=== PATIENT | female | born 1930 | race Hispanic/Latino ===

== ENCOUNTER 2019-04-21 08:48 | Emergency (ER) | payer MEDICARE ==
[2019-04-21] MEDS ORDERED: SUCCINYLCHOLINE CHLORIDE 200 MG/10 ML INJ MDV IV ONE (08:52)
[2019-04-21] MEDS ORDERED: ETOMIDATE 20 MG/10 ML INJ IV ONE ×2 (08:52→21:30)
[2019-04-21] MEDS ORDERED: PROPOFOL 1,000 MG/100 ML BOTTLE IV ONE (08:59)
[2019-04-21] MEDS ORDERED: MINERAL OIL/PETROLATUM, WHITE OPHTH OINT 3.5 GM OU PRN (09:07)
[2019-04-21] MEDS ORDERED: LIP THERAPY VASELINE TP PRN (09:07)
[2019-04-21 09:28] LABS: Basophils # (Auto) 0.1 K/mm3 (0.0-0.1); Basophils % (Auto) 1.2 % (0.0-1.8); Eosinophils # (Auto) 0.1 K/mm3 (0.0-0.4); Eosinophils % (Auto) 2.4 % (0.0-4.3); Hematocrit 41.1 % (30.3-42.9); Hemoglobin 13.7 gm/dl (10.1-14.3); Lymphocytes % (Auto) 22.3 % (13.4-35.0); Mean Corpuscular HGB Conc 33 % (30-34); Mean Corpuscular Volume 90 fl (79-97); Monocytes # (Auto) 0.4 K/mm3 (0.0-0.8); Monocytes % (Auto) 9.9 % (0.0-7.3); Platelet Count 140 K/mm3 (140-440); Red Blood Count 4.59 M/mm3 (3.65-5.03); Red Cell Distribution Width 15.5 % (13.2-15.2)
[2019-04-21 09:38] LABS: INR 2.72 (0.87-1.13)
[2019-04-21 09:39] LABS: Partial Thromboplastin Time 30.6 Sec. (24.2-36.6); Thrombin Time 17.9 Sec. (15.1-19.6)
[2019-04-21 09:40] LABS: BUN/Creatinine Ratio 20; Blood Urea Nitrogen 14 mg/dL (7-17); Calcium 9.1 mg/dL (8.4-10.2); Hemolysis Index 20
[2019-04-21 09:44] LABS: Alanine Aminotransferase 18 units/L (7-56); Albumin 3.8 g/dL (3.9-5); Bilirubin,Direct < 0.2 mg/dL (0-0.2)
--- NOTE | 2019-04-21 09:45 | XRay Report ---
LEFT HUMERUS 2 VIEWS INDICATION / CLINICAL INFORMATION: trauma COMPARISON: None available. FINDINGS: BONES / JOINT(S): No acute fracture or subluxation. No significant arthritis. SOFT TISSUES: No significant abnormality. ADDITIONAL FINDINGS: None. Signer Name: Huey Caceres MD Signed: 04/21/2019 9:40 AM Workstation Name: [id number]
[2019-04-21] MEDS ORDERED: SODIUM CHLORIDE 0.9% 500 ML 500 ML IV ONE (09:46)
--- NOTE | 2019-04-21 09:53 | Cat Scan Report ---
CT HEAD WITHOUT CONTRAST INDICATION / CLINICAL INFORMATION: neuro deficits <6hrs or sx present upon awakening. TECHNIQUE: Axial imaging performed from the skull apex through the skull base without the use of cont rast. Sagittal and coronal reformatted images. All CT scans at this location are performed using CT dose reduction for ALARA by means of automated exposure control. COMPARISON: None available. FINDINGS: A large acute hemorrhage measuring 7.0 x 4.8 cm overlies the right basal ganglia. This hemorrhage ext ends into the ventricular system with a large amount of blood throughout the ventricular system. Righ t to left midline shift measures 8-9 mm at the level of the frontal horns. There is also a small amou nt of subarachnoid blood along the left side of the brainstem. Moderate underlying chronic white matter changes are identified. No chronic infarct is detected. Mild hydrocephalus is evident. Small left frontotemporal soft tissue hematoma is appreciated. The calvarium is intact. The sinuses a nd mastoid air cells are well-aerated. IMPRESSION: Large right basal ganglia hemorrhage with mass effect and extension into the ventricular system as de scribed. Small subarachnoid hemorrhage is identified along the left side of the brainstem. Chronic white matter changes. Mild hydrocephalus. Left frontotemporal soft tissue hematoma. These findings were discussed with Dr. Batista in the emergency department at 0944 hours EST. A read ba ck was performed. Signer Name: Hans Coleman Jr, MD Signed: 04/21/2019 9:49 AM Workstation Name: [id number]
--- NOTE | 2019-04-21 09:55 | XRay Report ---
CHEST 1 VIEW INDICATION: hypertension/ETT. COMPARISON: None FINDINGS: Support devices: An endotracheal tube has been inserted which terminates at the ayo. Retraction by 3 cm is recommended. Heart: Mild cardiomegaly. Lungs/Pleura: The lungs are hyperinflated with mild chronic interstitial changes. No consolidation, p leural fluid or pneumothorax is identified. Additional findings: Diffuse aortic calcifications. IMPRESSION: Recommend retraction of the endotracheal tube. Cardiomegaly. Hyperinflated lungs suggesting underlying emphysema. Signer Name: Hans Coleman Jr, MD Signed: 04/21/2019 9:51 AM Workstation Name: [id number]
[2019-04-21] MEDS ORDERED: niCARdipine 50 MG in SODIUM CHLORIDE 0.9% 250ML 230 ML IV SCH (10:00)
[2019-04-21] MEDS ORDERED: PROPOFOL 1,000 MG/100 ML BOTTLE IV SCH (10:00)
--- NOTE | 2019-04-21 10:23 | Cat Scan Report ---
CT CERVICAL SPINE WITHOUT INDICAT INDICATION: Trauma. TECHNIQUE: Axial imaging performed through the cervical spine without the use of contrast. Sagittal and coronal reconstructed images were also reviewed. All CT scans at this location are performed us ing CT dose reduction for ALARA by means of automated exposure control. COMPARISON: None FINDINGS: Alignment: Spinal alignment is normal. Bones: No fracture. A 7 mm lucent lesion of the C7 vertebral body extends through the superior endpl ate. Mild multilevel discogenic DJD is present. Soft tissues: No acute or significant incidental soft tissue abnormality. IMPRESSION: 1. No apparent traumatic injury. 2. Multilevel discogenic DJD. 3. A 7 mm lucent lesion of the C7 vertebral body extends through the superior endplate and is suspici ous for a metastasis. 4. Recommend MRI cervical spine without and with contrast. Signer Name: Paulie Kolb MD Signed: 04/21/2019 10:18 AM Workstation Name: [id number]
[2019-04-21] MEDS ORDERED: MANNITOL 20% 500 ML IV ONE (11:58)
--- NOTE | 2019-04-21 12:41 | Emergency Department Report ---
ED General Adult HPI - General Chief complaint: Dyspnea/Respdistress Stated complaint: NATALIE Time Seen by Provider: 04/21/19 09:02 Source: EMS Mode of arrival: Stretcher Limitations: Altered Mental Status - History of Present Illness Initial comments: 88-year-old female with an apparent syncopal episode. He was found on the floor by her . He does not know if she hit her head or not. However she did have some bruising on her left arm. She is on Coumadin for chronic atrial fibrillation. The states that the patient was essentially unresponsive when she was found. The patient was transported via EMS. Initially they state she was able to grasp with her right hand. They were not aware of left leg motion. On arrival she has a GCS of approximately 6, nonverbal and no eye opening. She does have some spontaneous flexion of her left leg apparent. -: Sudden - Related Data Allergies Allergy/AdvReac Type Severity Reaction Status Date / Time No Known Allergies Allergy Unverified 04/21/19 10:15 ED Review of Systems ROS: Stated complaint: NATALIE Other details as noted in HPI Comment: Unobtainable due to pts medical conditions ED Past Medical Hx - Past Medical History Previous Medical History?: Yes Hx Hypertension: Yes Additional medical history: A Fib - Surgical History Past Surgical History?: No - Social History Smoking Status: Never Smoker ED Physical Exam - General Limitations: Altered Mental Status General appearance: obtunded - Head Head exam: Present: other (swelling left calvarium) - Eye Eye exam: Present: other (pupils are small and equal but not extremely myotic). Absent: scleral icterus - ENT ENT exam: Present: normal exam - Neck Neck exam: Present: normal inspection. Absent: tenderness, meningismus - Respiratory Respiratory exam: Present: normal lung sounds bilaterally. Absent: respiratory distress - Cardiovascular Cardiovascular Exam: Present: regular rate, normal rhythm. Absent: systolic murmur, diastolic murmur, rubs, gallop - GI/Abdominal GI/Abdominal exam: Present: soft, normal bowel sounds. Absent: distended, tenderness, guarding, rebound - Neurological Exam Neurological exam: Present: other (flexion left leg noted otherwise nonresponsive to pain and verbal no eye opening) - Skin Skin exam: Present: warm, dry, intact, normal color. Absent: rash ED Course Vital Signs 04/21/19 04/21/19 04/21/19 08:59 09:00 09:05 Temperature Pulse Rate 78 81 73 Respiratory 16 Rate Blood Pressure 216/110 179/104 Blood Pressure 179/104 [Right] O2 Sat by Pulse 100 100 Oximetry 04/21/19 04/21/19 04/21/19 09:17 09:37 10:00 Temperature Pulse Rate 71 74 66 Respiratory 16 16 16 Rate Blood Pressure Blood Pressure 186/113 186/112 136/69 [Right] O2 Sat by Pulse 100 100 100 Oximetry 04/21/19 04/21/19 04/21/19 10:10 11:20 12:00 Temperature 95.4 F L Pulse Rate 60 64 Respiratory 16 16 Rate Blood Pressure Blood Pressure 163/52 172/82 [Right] O2 Sat by Pulse 100 100 Oximetry 04/21/19 12:30 Temperature Pulse Rate 72 Respiratory 16 Rate Blood Pressure Blood Pressure 156/83 [Right] O2 Sat by Pulse 100 Oximetry - Reevaluation(s) Reevaluation #1: The patient's blood pressure was quite high and arrival. She was given labetalol. An a Cardene drip was ordered. She met criteria for rapid sequence intubation to protect her airway. This was done without difficulty. She was sent for CT on the table was ready. She was found to have a huge approximately 8 x 5 cm right basal ganglion origin hemorrhage with ventricular extension. There is approximately 1 cm of midline shift. I spoke to Dr. Mich Escobar at [facility]. He stated that he thought this was an irretrievable situation as to eye. He stated that he would make a bed in the ICU with a likely goal of "family closure". He stated that he didn't think mannitol would be beneficial. I did order FFP. We continued management of the patient's malignant hypertension. The family was informed the patient's grim prognosis. However, they wanted to proceed with transfer. At the time of this dictation, [facility] still has not given us a bed assignment. We are waiting that for transfer. Family has been informed. 04/21/19 12:45 Reevaluation #2: Patient's blood pressure is now quite low. I have counseled the family again. Her situation is totally irretrievable in my opinion. I certainly have not recommended that we do CPR. The family is considering this information. 04/21/19 13:07 Reevaluation #3: Spoke with family again. They are going to make the patient DO NOT RESUSCITATE re: CPR goes. I will discuss admitting her here for comfort care with Dr. Brown. 04/21/19 13:20 - Intubation Time Out Performed: Yes Sedative: Etomidate Paralytic: Succinylcholine Laryngoscope: Vikki Size: 3 ET Tube Size: 7.5 Tube Secured Depth (cm): 22 Tube Secured Location: teeth Tube Placement Confirmation: visualized tube passing t Patient Tolerated Procedure: well Intubation Complications: none ED Medical Decision Making - Lab Data Result diagrams: 04/21/19 09:06 04/21/19 09:06 Laboratory Results - last 24 hr 04/21/19 04/21/19 04/21/19 09:02 09:06 09:06 WBC 4.4 L RBC 4.59 Hgb 13.7 Hct 41.1 MCV 90 MCH 30 MCHC 33 RDW 15.5 H Plt Count 140 Lymph % (Auto) 22.3 Bryan % (Auto) 9.9 H Eos % (Auto) 2.4 Baso % (Auto) 1.2 Lymph # 1.0 L Bryan # 0.4 Eos # 0.1 Baso # 0.1 Seg Neutrophils % 64.2 Seg Neutrophils # 2.8 PT 28.3 H INR 2.72 H APTT 30.6 Thrombin Time 17.9 POC ABG pH POC ABG pCO2 POC ABG HCO3 POC ABG Total CO2 POC ABG O2 Sat POC ABG Base Excess FiO2 Sodium Potassium Chloride Carbon Dioxide Anion Gap BUN Creatinine Estimated GFR BUN/Creatinine Ratio Glucose POC Glucose 146 H Calcium Total Bilirubin Direct Bilirubin Indirect Bilirubin AST ALT Alkaline Phosphatase Troponin T NT-Pro-B Natriuret Pep Total Protein Albumin Albumin/Globulin Ratio Blood Type 04/21/19 04/21/19 04/21/19 09:06 09:06 10:49 WBC RBC Hgb Hct MCV MCH MCHC RDW Plt Count Lymph % (Auto) Bryan % (Auto) Eos % (Auto) Baso % (Auto) Lymph # Bryan # Eos # Baso # Seg Neutrophils % Seg Neutrophils # PT INR APTT Thrombin Time POC ABG pH 7.489 H POC ABG pCO2 40.0 POC ABG HCO3 30.4 POC ABG Total CO2 32 POC ABG O2 Sat 100 POC ABG Base Excess 7 FiO2 80 Sodium 139 Potassium 3.7 Chloride 99.0 Carbon Dioxide 24 Anion Gap 20 BUN 14 Creatinine 0.7 Estimated GFR > 60 BUN/Creatinine Ratio 20 Glucose 162 H POC Glucose Calcium 9.1 Total Bilirubin 0.50 Direct Bilirubin < 0.2 Indirect Bilirubin 0.3 AST 34 ALT 18 Alkaline Phosphatase 65 Troponin T < 0.010 NT-Pro-B Natriuret Pep 1209 H Total Protein 6.8 Albumin 3.8 L Albumin/Globulin Ratio 1.3 Blood Type 04/21/19 11:11 WBC RBC Hgb Hct MCV MCH MCHC RDW Plt Count Lymph % (Auto) Bryan % (Auto) Eos % (Auto) Baso % (Auto) Lymph # Bryan # Eos # Baso # Seg Neutrophils % Seg Neutrophils # PT INR APTT Thrombin Time POC ABG pH POC ABG pCO2 POC ABG HCO3 POC ABG Total CO2 POC ABG O2 Sat POC ABG Base Excess FiO2 Sodium Potassium Chloride Carbon Dioxide Anion Gap BUN Creatinine Estimated GFR BUN/Creatinine Ratio Glucose POC Glucose Calcium Total Bilirubin Direct Bilirubin Indirect Bilirubin AST ALT Alkaline Phosphatase Troponin T NT-Pro-B Natriuret Pep Total Protein Albumin Albumin/Globulin Ratio Blood Type O NEGATIVE - EKG Data -: EKG Interpreted by Hi Rate: normal (atrial fibrillation with normal ventricular response ectopic beat versus aberrant conduction. LVH and nonspecific repolarization abnormality ) - EKG Data Interpretation: no acute changes, LVH Defibrillation normal ventricular response nonspecific changes LVH PVCs versus aberrant conduction 04/21/19 12:59 - Radiology Data Radiology results: image reviewed (endotracheal tube slightly deviated towards the right mainstem at the ayo. It was pulled back 1 centimeter.) Critical Care Time: Yes Critical care time in (mins) excluding proc time.: 90 Critical care attestation.: If time is entered above; I have spent that time in minutes in the direct care of this critically ill patient, excluding procedure time. ED Disposition Clinical Impression: Intracranial hemorrhage, Malignant hypertension Disposition: [id number] ANOTHER TYPE HLTHCARE Is pt being admited?: No Does the pt Need Aspirin: No Condition: Stable Instructions: Hypertension (ED) Referrals: PRIMARY CARE, [Primary Care Provider] - 3-5 Days Time of Disposition: 13:02
[2019-04-21] MEDS ORDERED: SODIUM CHLORIDE 0.9% 1000 ML 1,000 ML ONE (13:18)
[2019-04-21] MEDS ORDERED: SODIUM CHLORIDE 0.9% 1000 ML 1,000 ML IV ONE (14:01)
[2019-04-21] MEDS ORDERED: SODIUM CHLORIDE 0.9% 500 ML 500 ML ONE (14:49)
--- NOTE | 2019-04-21 17:16 | Event Note ---
Patient is a 88-year-old female who suffered a massive intracranial hemorrhage. Patient is been hypotensive and was made a DO NOT RESUSCITATE earlier this morning. Families wishes her to remove her from our supportive care. Dr. Brown will be admitted side nonsigning alongside of him to allow natural .
[2019-04-21 17:48] VITALS: BP 99/59
--- NOTE | 2019-04-21 19:04 | Event Note ---
Date: 04/21/19 See history and physical in the reports Severe intracranial hemorrhage Cardiorespiratory arrest Withdrawal of life care See summary Patient at 1822 hrs. certificate to be signed by Dr. Brown
--- NOTE | 2019-04-21 20:42 | Discharge Summary ---
HOSPITAL COURSE: The patient was admitted for unresponsiveness. Workup in the Emergency Room revealed the right large basal ganglia hemorrhage and patient was intubated in the Emergency Room. A CT of the head showed large right basal ganglia hemorrhage with mass effect and extension into the ventricular system. The patient is already intubated. A transfer to tertiary facility was attempted, but the family did not want any aggressive measures. In fact, they wanted withdrawal of the life support. After discussion with patient's family, they signed the AMD, which is to allow natural and also family later signed withdrawal of life care. After talking with Dr. Batista and then Dr. Lemus and risk management was extubated the patient at bedside with the help of the respiratory therapist. After the withdrawal of life support within a half an hour, the patient went into PEA and cardiac arrest. The patient was not a candidate for resuscitation and revival and the subdural hematoma evacuation. Prognosis was poor to start with. Time 1822 hrs JOB# [id number] MARIELA/TREVOR LEON
[2019-04-21] MEDS ORDERED: SUCCINYLCHOLINE CHLORIDE 200 MG/10 ML INJ MDV ONE (21:30)
--- NOTE | 2019-04-22 00:09 | History and Physical Report ---
CHIEF COMPLAINT: Passed out and found on the floor by . HISTORY OF PRESENT ILLNESS: An 88-year-old female with history of hypertension and atrial fibrillation and very active, who does her own grocery shopping, driving and running, was found on the floor unresponsive. The does not know whether she hit her head or not. The patient was unresponsive. She is on Coumadin for chronic atrial fibrillation. The patient is unresponsive. No chest pain. No other predisposing factor. The patient was transported by EMS. No movement on the right side. No responsiveness. PAST MEDICAL HISTORY: Significant for hypertension and atrial fibrillation. On Coumadin. PAST SURGICAL HISTORY: None. SOCIAL HISTORY: Does not smoke. Active exercise. FAMILY HISTORY: Hypertension. REVIEW OF SYSTEMS: Significant for fall and unresponsiveness. Does not open her eyes. PHYSICAL EXAMINATION: GENERAL: On examination, elderly female, intubated, dependent on ventilator. Respiratory rate is 18 and does not have any extra breath. HEENT: Unremarkable. Pupils equal and reactive. NECK: Supple. No lymphadenopathy, no thyromegaly. LUNGS: Clear to auscultation and percussion. Good air entry. CARDIOVASCULAR: S1, S2 heard. No gallop, no murmur, no rub. Apical impulse in left fifth intercostal space and midclavicular line. ABDOMEN: Soft and benign. No hepatosplenomegaly. No guarding, no rigidity. Hernial orifices are normal. EXTREMITIES: Good pedal pulses. Unable to move right upper and right lower extremity. CENTRAL NERVOUS SYSTEM: Consistent with left side bleed and right hemiplegia for the time being. Deep venous thrombosis prophylaxis, the patient already has intracranial bleed. No further anticoagulation. IMAGING STUDIES: CT of the head shows large right intracranial hemorrhage, especially in the right basal ganglia and extension into the ventricular system as described. Small subarachnoid hemorrhage is identified on the left side of the brainstem. Mainly right basal ganglia hemorrhage. LABORATORY DATA: Labs are significant for white count of 4400. Rest of the CBC is normal. ABG, pH of 7.489, pCO2 of 40, bicarb is 30, pO2 is pending. Electrolytes are normal. BNP is 12,900. Albumin is 3.8. ASSESSMENT AND PLAN: Right intracranial hemorrhage involving basal ganglia also causing massive density in right intracranial hemorrhage extending for 5 x 6 cm on the right parietal region. Labs are significant for BNP of ____, glucose is 162. CBC was normal. ASSESSMENT AND PLAN: 1. Right intracranial bleed. Prognosis is very poor. Do not resuscitate arrangements are made. The patient's family wants the patient to be extubated. There are signs of withdrawal of care. 2. Massive intracranial hemorrhage secondary to hypertension. 3. Atrial fibrillation. The patient is on Coumadin. We will stop the Coumadin for the time being. 4. Deep venous thrombosis prophylaxis. Heparin cannot be given, is contraindicated because of the brain bleed. Protonix 40 mg intravenous q. 12. In summary, the patient has massive intracranial hemorrhage, right side involving the basal ganglia and causing left hemiplegia. Supportive care. Family does not want aggressive measures. The patient's family agrees for life support to be taken out. They want to let her pass without suffering. CCT 40 minutes JOB# [id number] MARIELA/TREVOR MTDD
== END 2019-04-21 21:41 | disposition other institution (70) ==
LOC: ED 08:48
DX: I62.9 Nontraumatic intracranial hemorrhage, unspecified (principal); I10 Essential (primary) hypertension
CPT/HCPCS: 31500; 36415; 70450; 71045; 72125; 73060; 80048; 80076; 82803; 82962; 83880; 84484; 85025; 85610; 85670; 85730; 86900; 86901; 87070; 87205; 93005; 93010; 96361; 96365; 96366; 96375; 99291; 99292; J0330; J2704; J7030; J7040; J7050; P9017; 94002; J2150